=== PATIENT | female | born 1990 | race African-American/Black ===

== ENCOUNTER 2016-11-28 19:04 | Emergency (ER) | payer MEDICAID ==
[~2016-11-28] VITALS: Ht 167.6 cm; Wt 111.4 kg
[~2016-11-28 19:04] MED LIST: IPRA4AER IH
[2016-11-28 21:12] LABS: APPEARANCE,URINE CLEAR (CLEAR); GLUCOSE, URINE (UA) NEGATIVE (NEGATIVE); KETONES,URINE NEGATIVE (NEGATIVE); LEUKOCYTE ESTERASE ,URINE MODERATE (NEGATIVE); OCCULT BLOOD,URINE NEGATIVE (NEGATIVE); PROTEIN,URINE NEGATIVE (NEGATIVE)
[2016-11-28 21:13] LABS: ADD UA MICROSCOPIC YES
[2016-11-28 21:36] LABS: SQUAMOUS EPITHELIAL CELL,UR Moderate /LPF (None Seen)
[2016-11-28 21:38] LABS: RBC,URINE None Seen /HPF (0-2)
[2016-11-28 22:04] VITALS: BP 118/71
[2016-11-28] MEDS ORDERED: ZINC OXIDE PASTE 60 GM TUBE TP ONE (22:15)
[2016-11-28] MEDS ORDERED: IBUPROFEN 800 MG TABLET PO ONE (22:30)
== END 2016-11-28 22:41 | disposition home or self-care (01) ==
LOC: EMS 19:05
DX: S31.41XA Laceration without foreign body of vagina and vulva, initial encounter (principal); J45.909 Unspecified asthma, uncomplicated; F12.90 Cannabis use, unspecified, uncomplicated; Z88.8 Allergy status to other drugs, medicaments and biological substances; W45.8XXA Other foreign body or object entering through skin, initial encounter; Y93.89 Activity, other specified; Y92.89 Other specified places as the place of occurrence of the external cause; Y99.8 Other external cause status
CPT/HCPCS: 87086; 99283; 99284

== ENCOUNTER 2017-05-22 22:30 | Emergency (ER) | payer MEDICAID ==
[~2017-05-22] VITALS: Ht 165.1 cm; Wt 109.0 kg
[2017-05-22] MEDS ORDERED: KETOROLAC TROMETHAMINE 60 MG/2 ML VIAL IM ONE (23:30)
[2017-05-23 01:10] VITALS: BP 121/66
== END 2017-05-23 01:35 | disposition home or self-care (01) ==
LOC: EMS 22:35
DX: S23.3XXA Sprain of ligaments of thoracic spine, initial encounter (principal); S33.5XXA Sprain of ligaments of lumbar spine, initial encounter; S13.4XXA Sprain of ligaments of cervical spine, initial encounter; J45.909 Unspecified asthma, uncomplicated; F12.90 Cannabis use, unspecified, uncomplicated; Z88.8 Allergy status to other drugs, medicaments and biological substances; V43.52XA Car driver injured in collision with other type car in traffic accident, initial encounter; Y93.89 Activity, other specified; Y92.89 Other specified places as the place of occurrence of the external cause; Y99.8 Other external cause status
CPT/HCPCS: 72040; 72070; 72100; 81025; 96372; 99284; J1885

== ENCOUNTER 2024-10-26 00:03 | Emergency (ER) | payer SELFPAY ==
[~2024-10-26] VITALS: Ht 165.1 cm; Wt 118.2 kg
[2024-10-26 01:00] VITALS: BP 121/71; PULSE 72; RESP 16; TEMP 97.3; O2SAT 100
[2024-10-26] MEDS: DiphenhydrAMINE HCL 25 MG CAPSULE PO ONE (01:00)
[2024-10-26] MEDS: HYDROCORTISONE 1% 30 GM CREAM TP ONE (01:00)
== END 2024-10-26 04:16 | disposition home or self-care (01) ==
LOC: EMS 00:03
DX: R21 Rash and other nonspecific skin eruption (principal); J45.909 Unspecified asthma, uncomplicated; N19 Unspecified kidney failure; F12.90 Cannabis use, unspecified, uncomplicated; Z98.890 Other specified postprocedural states; Z79.899 Other long term (current) drug therapy; W57.XXXA Bitten or stung by nonvenomous insect and other nonvenomous arthropods, initial encounter; Y93.89 Activity, other specified; Y92.89 Other specified places as the place of occurrence of the external cause; Y99.8 Other external cause status
CPT/HCPCS: 99283

== ENCOUNTER 2025-02-24 22:11 | Emergency (ER) | payer BC, MEDICAID ==
[~2025-02-24] VITALS: Ht 165.1 cm; Wt 109.1 kg
[2025-02-24 22:41] VITALS: TEMP 98.8
[2025-02-25 00:55] VITALS: BP 129/76; PULSE 58; RESP 18; O2SAT 99
[2025-02-25] MEDS ORDERED: IBUP-1492 PO (01:29)
[2025-02-25] MEDS ORDERED: SULF1TAB94 PO (01:29)
[2025-02-25] MEDS: SULFAMETHOX/TRIMETH DS 800-160 MG/TABLET PO ONE (01:47)
[2025-02-25] MEDS: IBUPROFEN 800 MG TABLET PO ONE (01:47)
== END 2025-02-25 02:03 | disposition home or self-care (01) ==
LOC: EMS 22:56
DX: S80.02XA Contusion of left knee, initial encounter (principal); J45.909 Unspecified asthma, uncomplicated; F12.90 Cannabis use, unspecified, uncomplicated; L03.116 Cellulitis of left lower limb; Z88.0 Allergy status to penicillin; Z98.890 Other specified postprocedural states; X58.XXXA Exposure to other specified factors, initial encounter; Y93.01 Activity, walking, marching and hiking; Y92.89 Other specified places as the place of occurrence of the external cause; Y99.8 Other external cause status
CPT/HCPCS: 99283